=== PATIENT | male | born 1965 | race Caucasian/White ===

== ENCOUNTER → 2016-09-12 09:33 | Outpatient (CLI) | payer MEDICAID ==
[~2016-09-12 09:33] MED LIST: BAYER CHEWABLE81 MG PO; HYDROCODON-ACE1 EAC7 PO; LIPITOR20 MG PO; METOPROLOL TART50 MG PO; MULTIPLE VITAMI1 TA1 PO; NORVASC5 MG PO; OMEPRAZOLE20 M1 PO; SYNTHROID150 MCG PO
[2016-10-23 06:37] VITALS: BMI 37.4
== END | disposition home or self-care (01) ==
LOC: D.US 09:33
DX: R79.89 Other specified abnormal findings of blood chemistry (principal)

== ENCOUNTER 2016-10-23 06:28 | Day surgery (SDC) | payer MEDICAID ==
[2016-10-20 08:49] LABS: HEMOGLOBIN 15.7 g/dL (13.5-17.5); MCH 31.3 pg (26.0-34.0); MCHC 34.9 g/dL (31.0-37.0); MCV 89.6 fL (80.0-100.0); MEAN PLATELET VOLUME 10.2 fL (7.4-10.4); RBC 5.02 10x6/uL (4.20-6.10); RDW 13.5 % (11.5-14.5); WBC 5.6 10x3/uL (4.8-10.8)
[~2016-10-23] VITALS: Ht 182.9 cm; Wt 124.7 kg
[~2016-10-23 06:28] MED LIST changes: -HYDROCODON-ACE1 EAC7 PO
--- NOTE | 2016-10-23 06:36 | NUR ---
0625 PT STATES NO CHANGES IN HEALTH HISTORY ASSESSMENT SINCE INTERVIEWED ON 10/20/16. LAST BM: 10/23/16. RANKS PAIN 0/10 PREOPERATIVELY. Stephon HUSSEIN R.N.
[2016-10-23 06:37] VITALS: BP 133/88; Ht 182.9 cm; Wt 124.7 kg
[2016-10-23] MEDS ORDERED: HYDROCODON-ACE1 EAC7 PO (08:43)
--- NOTE | 2016-10-23 10:28 | NUR ---
1025--PT TO THE BATHROOM, VOIDS WITHOUT DIFFICULTY. [facility] 1028--IV DC'D, PT TO DRESS AT THIS TIME. [facility]
--- NOTE | 2016-10-23 10:43 | NUR ---
1040--DISCHARGE INSTRUCTIONS GIVEN, PT VERBALIZES UNDERSTANDING. PT OFF UNIT VIA [facility]. [facility]
--- NOTE | 2016-10-23 14:08 | OP ---
PATIENT NAME: YOSELIN QUEVEDO MEDICAL RECORD: [id number] :61 LOCATION:[facility] ADMISSION DATE: SURGEON: PARAM HUGHES MD DATE OF OPERATION: 10/23/2016 SURGEON: Param Hughes MD PREOPERATIVE DIAGNOSIS: Symptomatic cholelithiasis. POSTOPERATIVE DIAGNOSIS: Symptomatic cholelithiasis. PROCEDURE PERFORMED: Laparoscopic cholecystectomy. ANESTHESIA: General. COMPLICATIONS: None. SPECIMENS: Gallbladder. Case was clean contaminated. ESTIMATED BLOOD LOSS: 20 cc. OPERATIVE COURSE: After consent was obtained, the patient was taken to the operating room and placed in the supine position on the operating table. Next, general anesthesia was given via endotracheal intubation after a timeout was performed that confirmed the correct patient and procedure. The abdomen was then prepped and draped in typical sterile fashion. Local anesthetic was injected just above the umbilicus. A stab incision was made with 11-blade scalpel. Using a 5-mm bladeless optical trocar, the abdomen was entered under direct laparoscopic vision. Adequate pneumoperitoneum was achieved. The abdominal cavity was inspected. No evidence of bowel injury. No evidence of bleeding. The patient was then placed in the steep reverse Trendelenburg position. The remaining trocars were placed after the administration of local anesthetic under direct laparoscopic vision, two 5-mm trocars in the right upper quadrant and 11-mm trocar in the subxiphoid position. The fundus of the gallbladder was grasped and retracted cephalad. The infundibulum was grasped and retracted laterally. The peritoneum was incised using electrocautery. Blunt dissection was then performed with the suction slag skimmer as well as the [place] dissector until the critical view was obtained. The cystic duct lateral, cystic artery medial, liver in the posterior window. Three clips were placed in the proximal cystic artery, 1 clip distal. The cystic artery was able to be swept laterally off of the gallbladder. The cystic duct was transected with laparoscopic Metzenbaum scissors. The remaining portion of the gallbladder was then dissected off the liver bed using electrocautery. Once complete, it was grasped with the tenaculum and removed through the 11-mm trocar and sent for permanent pathology. Thereafter, the operative field was copiously irrigated and suctioned. Careful attention was paid to hemostasis, which was obtained from the liver bed using electrocautery. Operative field was irrigated and suctioned. The operative site was inspected. There was no evidence of bowel injury. No evidence of bleeding, no evidence of bile leak. There were 3 clips in placed in the proximal cystic duct. At this time, all remaining instruments were removed. The abdomen was desufflated. Trocars were removed. Skin was closed with 4-0 Monocryl, Mastisol and Steri-Strips. At the end of the case, all needle and instrument counts were correct. No complications occurred. The OPERATIVE REPORT [id number] YOSELIN QUEVEDO patient was extubated and transferred to the PACU in stable condition. TRANSINT:[id number] Voice Confirmation ID: [id number] DOCUMENT ID: [id number] PARAM HUGHES MD at 1408 CC: [id number] DICTATION DATE: 10/23/16 0843 [employer] MANAGER: 10/23/[address] [facility] 10/23/[address] [id number]
== END 2016-10-23 10:40 | disposition home or self-care (01) ==
LOC: D.OPS 06:28 → D.PAN 07:30 → D.OPS 07:30 → D.PAN 08:45 → D.OPS 08:45
PROVIDERS: Anesthesiology
DX: K80.20 Calculus of gallbladder without cholecystitis without obstruction (principal); E06.3 Autoimmune thyroiditis; I10 Essential (primary) hypertension; K21.9 Gastro-esophageal reflux disease without esophagitis